=== PATIENT | male | born 1975 | race Hispanic/Latino ===

== ENCOUNTER → 2024-08-05 | Day surgery (SDC) | payer OTHER ==
[~2024-08-05] MED LIST: GLUCAGON FOR INJ 1 MG VIAL ONE; LEVOTHYROXINE112 MCG PO; LIDOCAINE HCL 2% LOCAL INJ 5 ML SDV VIAL INJ ONE; LIPITOR10 MG PO; MIDAZOLAM HCL 2 MG/2 ML VIAL ONE; PROPOFOL IV EMULSION 10 MG/ML 20 ML VIAL ONE
[2024-08-05] MEDS: LACTATED RINGER'S 1,000 ML ONE (12:34)
[2024-08-05 14:10] VITALS: TEMP 97.1
[2024-08-05 14:30] VITALS: BP 124/81; PULSE 71; RESP 16; O2SAT 96
== END | disposition home or self-care (01) ==
LOC: OR 12:08
PROVIDERS: ATTEND Internal Medicine Gastroenterology
DX: D12.3 Benign neoplasm of transverse colon (principal); K64.1 Second degree hemorrhoids; E89.0 Postprocedural hypothyroidism; Z79.890 Hormone replacement therapy; Z01.810 Encounter for preprocedural cardiovascular examination
CPT/HCPCS: 45384; 93005; J1610; J2003; J2250; J2704; J7121